=== PATIENT | male | born 1965 | race Two or more races ===

== ENCOUNTER → 2018-08-09 | Emergency (ER) | payer OTHER ==
[~2018-08-09] VITALS: Ht 182.9 cm; Wt 95.3 kg
[~2018-08-09] MED LIST: CIPRO500 MG PO; FLAGYL500MG PO; INTESTINEX1 CA1 PO; LEVSIN/SL0.125 MG PO; METRONIDAZOLE500 MG PO; PROTONIX40 MG PO
== END | disposition home or self-care (01) ==
LOC: ER 07:42
DX: K57.30 Diverticulosis of large intestine without perforation or abscess without bleeding (principal); R10.84 Generalized abdominal pain

== ENCOUNTER 2020-03-26 00:58 | Inpatient (IN) | payer OTHER ==
[~2020-03-26] VITALS: Ht 182.9 cm; Wt 90.7 kg
[2020-03-26] MEDS ORDERED: FORTAMET500 MG (01:19)
[2020-03-26] MEDS ORDERED: LOSARTAN POTASS50 MG (01:19)
[2020-03-26] MEDS ORDERED: FORTAMET1000 MG (01:21)
== END 2020-03-28 10:38 | disposition home or self-care (01) | DRG 392 ==
LOC: ER 00:58 → SEC-K 09:52 → SURH 09:52
PROVIDERS: ADMIT Internal Medicine; ATTEND Internal Medicine
PROC: BW21ZZZ Computerized Tomography (CT Scan) of Abdomen and Pelvis (ICD-10-PCS; principal; 2020-03-26)
DX: K57.32 Diverticulitis of large intestine without perforation or abscess without bleeding (principal); E11.9 Type 2 diabetes mellitus without complications; I10 Essential (primary) hypertension; F10.20 Alcohol dependence, uncomplicated; E03.8 Other specified hypothyroidism

== ENCOUNTER 2023-12-24 07:03 | Emergency (ER) | payer OTHER ==
[~2023-12-24] VITALS: Ht 182.9 cm; Wt 86.2 kg
[~2023-12-24 07:03] MED LIST changes: +FORTAMET1000 MG; +FORTAMET500 MG; +LOSARTAN POTASS50 MG
[2023-12-24] MEDS ORDERED: JANUMET 50-1,01 EACH PO (07:25)
[2023-12-24] MEDS ORDERED: SYNTHROID100 MCG PO (07:26)
[2023-12-24] MEDS ORDERED: FENOFIBRATE50 MG (07:26)
[2023-12-24] MEDS ORDERED: ROSUVASTATIN CA20 MG PO (07:26)
[2023-12-24 09:13] LABS: HEMATOCRIT 40.7 % (39.0-48.0); HEMOGLOBIN 14.8 g/dL (13-16.00); MEAN CELL VOLUME 90.7 fL (80.0-100.00); MEAN CORPUSCULAR HEMOGLOBIN 32.9 pg (27.00-32.0); MEAN CORPUSCULAR HGB CONC 36.2 g/dl (32.0-36.0); PLATELET COUNT 118 K/uL (150-450); RED BLOOD COUNT 4.49 M/uL (4.00-6.00); RED CELL DISTRIBUTION WIDTH 12.8 % (11.5-14.5)
[2023-12-24 09:38] LABS: PH,URINE 6.5 (5.0-8.0); URINE APPEARANCE Clear; URINE BILIRRUBIN Negative (NEGATIVE); URINE BLOOD Negative; URINE COLOR Yellow; URINE GLUCOSE Negative (NEGATIVE); URINE KETONE Negative (NEGATIVE); URINE LEUKOCYTE Negative; URINE NITRATE Negative; URINE PROTEIN Negative (NEGATIVE); URINE UROBILINOGEN 0.2 E.U./dl
[2023-12-24 09:40] LABS: URINE BACTERIA 8.8 uL (0.0-1933); URINE RBC 5.1 uL (0.0-20.8)
[2023-12-24 09:47] LABS: URINE EPITHELIAL CELLS 0.9 uL (0.0-38.8); URINE WBC 0.9 uL (0.0-23.2)
[2023-12-24 09:52] LABS: ALBUMIN 3.7 gm/dL (3.4-5.0); BILIRUBIN TOTAL 1.07 mg/dL (0.3-1.2); BILIRUBIN,CONJUGATED 0.31 mg/dL (0.0-0.2); BILIRUBIN,UNCONJUGATED 0.76 mg/dL (0.0-0.6); CALCIUM 9.4 mg/dL (8.5-10.1); CREATININE SERUM 1.27 mg/dL (0.70-1.30); GFR 58.25; GLOBULINA 4.4 G/DL (2.4-3.5); POTASSIUM 3.12 mEq/L (3.5-5.1); TOTAL PROTEIN 8.1 gm/dL (6.4-8.2)
== END 2023-12-24 14:43 | disposition home or self-care (01) ==
LOC: ER 07:05
PROVIDERS: Emergency Medicine
DX: R53.81 Other malaise (principal); D69.6 Thrombocytopenia, unspecified; R68.83 Chills (without fever); A90 Dengue fever [classical dengue]; Z20.822 Contact with and (suspected) exposure to COVID-19; I10 Essential (primary) hypertension; E03.8 Other specified hypothyroidism; E11.9 Type 2 diabetes mellitus without complications; Z79.84 Long term (current) use of oral hypoglycemic drugs

== ENCOUNTER 2024-09-29 06:43 | Day surgery (SDC) | payer OTHER ==
[~2024-09-29 06:43] MED LIST changes: +FENOFIBRATE50 MG; +JANUMET 50-1,01 EACH PO; +ROSUVASTATIN CA20 MG PO; +SYNTHROID100 MCG PO
[2024-09-29] MEDS ORDERED: MIDAZOLAM HCL 2 MG/2 ML VIAL IV ONE (10:00)
[2024-09-29] MEDS ORDERED: fentaNYL CITRATE 50 MCG/ML AMPUL IV ONE (10:00)
[2024-09-29] MEDS ORDERED: DIPHENHYDRAMINE HCL 50 MG/ML VIAL 1ML IV ONE (10:00)
== END 2024-09-29 11:35 | disposition home or self-care (01) ==
LOC: AMB-ENDOS 06:43
PROVIDERS: ATTEND Surgery
DX: K57.30 Diverticulosis of large intestine without perforation or abscess without bleeding (principal); R19.4 Change in bowel habit; K63.5 Polyp of colon

== ENCOUNTER 2024-11-11 12:30 | Inpatient (IN) | payer OTHER ==
[~2024-11-11] VITALS: Wt 86.2 kg
[2024-11-18] MEDS ORDERED: BUPIVACAINE HCL 30 ML VIAL IJ ONE (09:00)
[2024-11-18] MEDS ORDERED: METRONIDAZOLE/SODIUM CHLORIDE 500 MG/100 ML PIGGYBACK IV ONE (09:00)
[2024-11-18] MEDS ORDERED: LIDOCAINE HCL 1%/EPINEPHRINE 20ML VIAL IJ ONE (09:00)
[2024-11-18] MEDS ORDERED: CEFTRIAXONE SODIUM 2,000 MG VIAL IV ONE (09:00)
[2024-11-18] MEDS ORDERED: MORPHINE SULFATE 4 MG/ML CARTRIDGE IV PRN (10:30)
[2024-11-18] MEDS ORDERED: RINGERS SOLUTION,LACTATED 1,000 ML IV SCH (10:30)
[2024-11-18] MEDS ORDERED: ONDANSETRON HCL 2 MG/ML VIAL IV PRN (10:30)
[2024-11-18] MEDS ORDERED: OxyCODONE HCL 5 MG TABLET (ROXICODONE) PO PRN (10:30)
[2024-11-18] MEDS ORDERED: MORPHINE SULFATE 4 MG/ML VIAL IV ONE (11:10)
[2024-11-18] MEDS ORDERED: ENALAPRILAT DIHYDRATE 1.25 MG/ML VIAL IV PRN (11:30)
[2024-11-18] MEDS ORDERED: INSULIN LISPRO 1,000 UNIT/10 ML UNITS SUBCUTANEO PRN (11:30)
[2024-11-18] MEDS ORDERED: DEXTROSE 50 % IN WATER 0.5 G/ML VIAL IV PRN (11:30)
[2024-11-18] MEDS ORDERED: TAMSULOSIN HCL 0.4 MG CAP PO SCH (12:00)
[2024-11-18] MEDS ORDERED: LACTOBACILLUS ACIDOPHILUS 1 CAP CAP PO SCH (12:00)
[2024-11-18] MEDS ORDERED: ACETAMINOPHEN 500 MG GEL..CAP PO SCH (12:00)
[2024-11-18 12:24] VITALS: BP 152/79; O2SAT 96
[2024-11-18] MEDS ORDERED: METRONIDAZOLE/SODIUM CHLORIDE 500 MG/100 ML PIGGYBACK IV SCH (13:00)
[2024-11-18] MEDS ORDERED: HYOSCYAMINE SULFATE 0.125 MG TAB.SUBL SL SCH (13:00)
[2024-11-18] MEDS ORDERED: CHLORDIAZEPOXIDE HCL 25 MG CAPSULE PO SCH (14:10)
[2024-11-18 16:00] VITALS: BP 160/83; O2SAT 97
[2024-11-18] MEDS ORDERED: CIPROFLOXACIN IN 5 % DEXTROSE 400 MG/200 ML PIGGYBAG IV SCH (17:00)
[2024-11-18] MEDS ORDERED: GABAPENTIN 300 MG CAPSULE PO SCH (17:00)
[2024-11-18] MEDS ORDERED: FAMOTIDINE/PF 20 MG/2 ML VIAL IV PUSH SCH (17:00)
[2024-11-19 01:37] VITALS: BP 123/75; O2SAT 98
[2024-11-19] MEDS ORDERED: LEVOTHYROXINE SODIUM 100 MCG TABLET PO SCH (06:00)
[2024-11-19 08:00] VITALS: BP 126/80; O2SAT 97
[2024-11-19 08:05] LABS: BASO % 0.4 % (0.1-1.2); EOS # 0.01 (0.04-0.54); EOS % 0.1 % (0.7-7.0); LYMPH # 1.29 (1.18-3.74); LYMPH % 15.8 % (19.3-53.1); MEAN PLATELET VOLUME 10.60 fl (9.4-12.4); MONO # 0.80 (0.24-0.82); MONO % 9.8 % (4.7-12.5); NEUT # 5.99 (1.56-6.13); NEUT % 73.4 % (34.0-71.1); RED CELL DISTRIBUTION WIDTH 12.0 % (11.6-14.4)
[2024-11-19 08:21] LABS: BUN CREA RATIO 8.0 (7.0-25.0); CREATININE SERUM 0.91 mg/dL (0.70-1.30); GFR 85.27; GLUCOSE FASTING 154.0 mg/dL (65-100); OSMOLALITY SERUM 280.0 MOSM/KG (275-295)
[2024-11-19] MEDS ORDERED: LOSARTAN POTASSIUM 100 MG TABLET PO SCH (09:00)
[2024-11-19 16:00] VITALS: BP 116/74; O2SAT 96
[2024-11-19] MEDS ORDERED: ENOXAPARIN SODIUM 40 MG/0.4 ML SYRINGE SUBCUTANEO SCH (17:00)
[2024-11-19] MEDS ORDERED: ROSUVASTATIN CALCIUM 20 MG TABLET PO SCH (17:00)
[2024-11-20 01:29] VITALS: BP 131/75; O2SAT 94
[2024-11-20 08:00] VITALS: BP 125/84; BP 133/83; O2SAT 96
[2024-11-20] MEDS ORDERED: ENOXAPARIN SODIUM 40 MG/0.4 ML SYRINGE SUBCUTANEO SCH (09:00)
[2024-11-20] MEDS ORDERED: HYOSCYAMINE0.125 M1 SL (11:48)
[2024-11-20] MEDS ORDERED: PAIN RELIEVER500 M2 PO (11:49)
== END 2024-11-20 14:06 | disposition home or self-care (01) | DRG 330 ==
LOC: O/R 11-18 08:57 → SURH 11-18 11:15
PROVIDERS: ADMIT Surgery; ATTEND Surgery
PROC: 0DBP4ZZ Excision of Rectum, Percutaneous Endoscopic Approach (ICD-10-PCS; 2024-11-18)
PROC: 8E0W4CZ Robotic Assisted Procedure of Trunk Region, Percutaneous Endoscopic Approach (ICD-10-PCS; 2024-11-18)
PROC: 0DTN4ZZ Resection of Sigmoid Colon, Percutaneous Endoscopic Approach (ICD-10-PCS; principal; 2024-11-18 11:15)
DX: K57.32 Diverticulitis of large intestine without perforation or abscess without bleeding (principal); K56.690 Other partial intestinal obstruction; K63.5 Polyp of colon
CPT/HCPCS: 44207; 44213; S2900